=== PATIENT | male | born 1990 | race African-American/Black ===

== ENCOUNTER 2016-09-21 10:57 | Emergency (ER) | payer OTHER ==
[~2016-09-21] VITALS: Ht 175.3 cm; Wt 64.0 kg
[2016-09-21] MEDS ORDERED: NORCO 5/3251 TABLET PO (14:24)
[2016-09-21 14:40] VITALS: BP 109/80
== END 2016-09-21 14:41 | disposition home or self-care (01) ==
LOC: EME 10:57
PROC: 2W3EX1Z Immobilization of Right Hand using Splint (ICD-10-PCS; principal; 2016-09-21)
DX: S62.306A Unspecified fracture of fifth metacarpal bone, right hand, initial encounter for closed fracture (principal); W51.XXXA Accidental striking against or bumped into by another person, initial encounter
CPT/HCPCS: 73130; 99281; 99284